=== PATIENT | male | born 1985 | race Two or more races ===

== ENCOUNTER 2017-09-13 06:51 | Day surgery (SDC) | payer OTHER, MEDICAID ==
[2017-09-13] MEDS ORDERED: PROPOFOL 60 ML (07:26)
[2017-09-13] MEDS ORDERED: LIDOCAINE 100 MG SYRINGE (07:27)
== END 2017-09-13 09:42 | disposition home or self-care (01) ==
LOC: GIL 06:51
DX: K29.70 Gastritis, unspecified, without bleeding (principal); K64.8 Other hemorrhoids; K62.5 Hemorrhage of anus and rectum; F84.0 Autistic disorder
CPT/HCPCS: 43239; 87081

== ENCOUNTER 2019-04-12 12:05 | Day surgery (SDC) | payer OTHER ==
[2019-04-12] MEDS ORDERED: LIDOCAINE 2% (SDV) 5 ML INJ (13:22)
[2019-04-12] MEDS ORDERED: PROPOFOL 40 ML (13:22)
[2019-04-12] MEDS ORDERED: ONDANSETRON 4 MG INJ IV (14:00)
[2019-04-12] MEDS ORDERED: FENTAnyl 50 MCG/ML VIAL IV (14:00)
== END 2019-04-12 15:03 | disposition home or self-care (01) ==
LOC: GIL 12:05
DX: K29.50 Unspecified chronic gastritis without bleeding (principal); J45.909 Unspecified asthma, uncomplicated; F84.0 Autistic disorder
CPT/HCPCS: 43239; 88305; 88312